=== PATIENT | female | born 1955 | race Caucasian/White ===

== ENCOUNTER → 2016-11-17 | Outpatient (CLI) | payer MEDICARE ==
[2016-11-17 11:28] LABS: Basophils % (A) 1 %; CH 29.7; CHCM 33.5; Eosinophils # (A) 0.1 k/uL (0-0.7); Eosinophils % (A) 3 %; HCT 37.7 % (34.0-46.0); HDW 2.48; HGB 12.5 gm/dL (11.4-16.0); Luc # (Auto) 0.09; Luc % (Auto) 3; Lymphocytes # (A) 1.4 k/uL (1.0-4.8); Lymphocytes % (A) 40 %; MCH 29.5 pg (25.0-35.0); MCHC 33.2 g/dL (31.0-37.0); Mean Platelet Volume 7.2; Monocytes # (A) 0.2 k/uL (0-1.0); Monocytes % (A) 7 %; Neutrophils # (A) 1.6 k/uL (1.3-7.7); Neutrophils % (A) 47 %; RBC 4.24 m/uL (3.80-5.40); RDW 13.4 % (11.5-15.5); WBC 3.4 k/uL (3.8-10.6); WBC (Perox) 3.62
== END | disposition home or self-care (01) ==
LOC: LABPAT 10:51
PROVIDERS: ATTEND Obstetrics & Gynecology
DX: Z01.818 Encounter for other preprocedural examination (principal); R94.31 Abnormal electrocardiogram [ECG] [EKG]
CPT/HCPCS: 36415; 85025; 93005

== ENCOUNTER 2016-11-27 08:19 | Day surgery (SDC) | payer BC, MEDICARE ==
[2016-11-20 10:42] VITALS: BMI 30.9
--- NOTE | 2016-11-27 07:37 | P.HPOB ---
History of Present Illness H&P Date: 11/27/16 Chief Complaint: Thickened endometrium Patient is a 61-year-old female who recently was seen for urinary tract complaints of pelvic pressure with back pain. Ultrasound had been done and revealed a grossly thickened endometrium of approximately 2 cm. She is therefore scheduled for a D&C hysteroscopy. Risks/benefits/alternatives were reviewed with the patient in detail and all questions were answered for her prior to proceeding to the operating room. On physical exam vital signs are stable and afebrile. Heart regular, lungs clear, extremities without pain. Pelvic exam is to be done with her under anesthetic today. Past Medical History Past Medical History: Cancer, Hyperlipidemia, Thyroid Disorder Additional Past Medical History / Comment(s): skin CA History of Any Multi-Drug Resistant Organisms: None Reported Past Surgical History: Orthopedic Surgery Additional Past Surgical History / Comment(s): neck fusion;partial thyroidectomy ; carpel tunnel;R wrist TFS tear; skin Ca removal Past Anesthesia/Blood Transfusion Reactions: No Reported Reaction Past Psychological History: No Psychological Hx Reported Smoking Status: Never smoker Past Alcohol Use History: Occasional Past Drug Use History: None Reported - Past Family History Mother Family Medical History: Cancer Additional Family Medical History / Comment(s): Skin CA Brother(s) Family Medical History: Cancer Additional Family Medical History / Comment(s): Skin CA Medications and Allergies Home Medications Medication Instructions Recorded Confirmed Type ALPRAZolam [Xanax] 0.5 mg PO DAILY PRN 05/21/16 11/20/16 History Cyclobenzaprine [Flexeril] 10 mg PO BID PRN 05/21/16 11/20/16 History Gabapentin [Neurontin] 300 mg PO Q8H 05/21/16 11/20/16 History Levothyroxine Sodium [Synthroid] 150 mcg PO MOTUWETHFRSA 05/21/16 11/20/16 History Pravastatin Sodium [Pravachol] 20 mg PO AC-SUPPER 05/21/16 11/20/16 History Sertraline HCl [Zoloft] 150 mg PO DAILY 05/21/16 11/20/16 History Zolpidem [Ambien] 10 mg PO HS PRN 05/21/16 11/20/16 History traMADol HCL [Ultram] 50 mg PO BID 05/21/16 11/20/16 History Allergies Allergy/AdvReac Type Severity Reaction Status Date / Time hydromorphone [From Dilaudid] AdvReac Nausea & Verified 11/20/16 10:33 Vomiting morphine AdvReac Nausea & Verified 11/20/16 10:33 Vomiting Exam Osteopathic Statement: *. No significant issues noted on an osteopathic structural exam other than those noted in the History and Physical/Consult. - OBG Physical Exam Abdomen: bowel sounds normal, no diffuse tenderness, no bruit present, no guarding noted, no hepatomegaly, no splenomegaly, no mass
[~2016-11-27 08:19] MED LIST: DEXAMETHASONE SOD PHOSPHATE 10 MG/ML 1 ML VIAL IV ONE; LACTATED RINGERS 1,000 ML IV SCH; ONDANSETRON 4 MG/2 ML VIAL IVP ONE; Pre Op ABX Message 1 EACH MISC MISCELLANE ONE
[2016-11-27] MEDS ORDERED: LIDOCAINE 1% 20 ML VIAL (10MG/ML) FOR IV START INTRADERMA ONE (09:03)
[2016-11-27] MEDS ORDERED: KETOROLAC 30 MG/ML 1 ML VIAL ONE (09:49)
[2016-11-27] MEDS ORDERED: MIDAZOLAM 2 MG/2 ML VIAL ONE (09:49)
[2016-11-27] MEDS ORDERED: LIDOCAINE 1% INJ 10MG/ML (20 ML MDV) ONE (09:49)
[2016-11-27] MEDS ORDERED: PROPOFOL 10 MG/ML 20 ML VIAL IV ONE (09:49)
[2016-11-27] MEDS ORDERED: fentaNYL (PF) 50 MCG/ML 2 ML AMP ONE (09:49)
--- NOTE | 2016-11-27 10:18 | P.OP ---
Date of Procedure: 11/27/16 Preoperative Diagnosis: Thickened endometrium Postoperative Diagnosis: Normal appearing uterus Procedure(s) Performed: D&C hysteroscopy Anesthesia: LINDSEY Surgeon: Roddy Rebolledo Estimated Blood Loss (ml): 1 Pathology: other (Uterine curettings) Condition: stable Disposition: same day Operative Findings: Scant tissue normal appearing endometrium suspect an adequate tissue sample due to possibility of sample. No evidence of lesion noted either with hysteroscope or with D&C tissue sampling. Description of Procedure: Patient was taken to the operating suite where a general anesthetic was found to be adequate. She was prepped and draped in the normal sterile fashion and placed in the dorsal lithotomy position. Initially a speculum was inserted into the vagina and the anterior lip of the cervix was identified and grasped with a single-tooth tenaculum. It was then dilated and sounded to 8 cm. Camera was then inserted. Os menopausal appearing uterus was noted is no evidence of hyperplasia. No polyps is seen. Once this was accomplished camera was removed and sharp curettings of the endometrium were obtained small amount of tissue returned suspect benign tissue. We'll have her back in 2 weeks to review pathology. Plan - Discharge Summary New Discharge Prescriptions: Ibuprofen [Motrin] 600 mg PO Q6HR PRN #30 tab PRN Reason: Pain Discharge Medication List ALPRAZolam [Xanax] 0.5 mg PO DAILY PRN 05/21/16 [History] Cyclobenzaprine [Flexeril] 10 mg PO BID PRN 05/21/16 [History] Gabapentin [Neurontin] 300 mg PO Q8H 05/21/16 [History] Levothyroxine Sodium [Synthroid] 150 mcg PO MOTUWETHFRSA 05/21/16 [History] Pravastatin Sodium [Pravachol] 20 mg PO AC-SUPPER 05/21/16 [History] Sertraline HCl [Zoloft] 150 mg PO DAILY 05/21/16 [History] Zolpidem [Ambien] 10 mg PO HS PRN 05/21/16 [History] traMADol HCL [Ultram] 50 mg PO BID 05/21/16 [History] Acetaminophen [Tylenol] 500 mg PO Q4-6H PRN 11/27/16 [History] Atenolol [Tenormin] 25 mg PO DAILY 11/27/16 [History] Ibuprofen [Motrin] 600 mg PO Q6HR PRN #30 tab 11/27/16 [Rx] Follow up Appointment(s)/Referral(s): Roddy Rebolledo DO [Doctor of Osteopathic Medicine] - 2 Weeks Activity/Diet/Wound Care/Special Instructions: No heavy lifting, limit stairs and driving today, pelvic rest. If any high temperatures, heavy bleeding, or severe pain call the office
[2016-11-27 10:30] VITALS: TEMP 97.2
[2016-11-27 10:33] VITALS: RESP 16
[2016-11-27 11:20] VITALS: PULSE 66
[2016-11-27 11:47] VITALS: BP 120/74
== END 2016-11-27 12:24 | disposition home or self-care (01) ==
LOC: OR 08:19
PROVIDERS: ATTEND Obstetrics & Gynecology
DX: R93.8 Abnormal findings on diagnostic imaging of other specified body structures (principal); N85.8 Other specified noninflammatory disorders of uterus; R94.31 Abnormal electrocardiogram [ECG] [EKG]; E78.5 Hyperlipidemia, unspecified; E89.0 Postprocedural hypothyroidism; I10 Essential (primary) hypertension; Z85.828 Personal history of other malignant neoplasm of skin; Z79.899 Other long term (current) drug therapy
CPT/HCPCS: 88305; 58558; J2250; J1100; J2405; J2001; J3010; J1885; J2704

== ENCOUNTER → 2017-02-26 | Outpatient (CLI) | payer MEDICARE ==
--- NOTE | 2017-02-27 08:28 | MM ---
Reason for exam: screening (asymptomatic). Last mammogram was performed 1 year and 6 months ago. History: Patient is postmenopausal and has history of other cancer at age 57. Benign cyst aspiration of the right breast, June 11, 2001. Reduction of the left breast. Reduction of the right breast. Cyst aspiration of the right breast. Physical Findings: A clinical breast exam by your physician is recommended on an annual basis and results should be correlated with mammographic findings. MG 3D Screening Mammo W/Cad Bilateral CC and MLO view(s) were taken. Prior study comparison: August 28, 2015, bilateral MG 3d screening mammo w/cad. May 10, 2014, bilateral MG foundation screening mammo. There are scattered fibroglandular densities. There is chronic nodularity in the right breast. No significant changes when compared with prior studies. ASSESSMENT: Benign, BI-RAD 2 RECOMMENDATION: Routine screening mammogram of both breasts in 1 year.
== END | disposition home or self-care (01) ==
LOC: RADMAMWWP 10:42
PROVIDERS: ATTEND Obstetrics & Gynecology
DX: Z12.31 Encounter for screening mammogram for malignant neoplasm of breast (principal)
CPT/HCPCS: 77063; G0202

== ENCOUNTER → 2018-01-15 | Outpatient (CLI) | payer MEDICARE ==
--- NOTE | 2018-01-15 11:51 | MR ---
EXAMINATION TYPE: MR lumbar spine wo con DATE OF EXAM: 01/15/2018 COMPARISON: Plain film 05/21/2016 HISTORY: Low back pain TECHNIQUE: Multiplanar, multisequence images of the lumbar spine were acquired. L1-L2: Small posterior broad-based disc bulge contacts anterior thecal sac, no significant central st enosis or foraminal encroachment. L2-L3: Broad-based posterior disc bulge contacts the anterior thecal sac. No significant foraminal en croachment or central stenosis. L3-L4: Small central posterior disc protrusion causes anterior mass effect on the thecal sac, no sign ificant central stenosis or foraminal encroachment. L4-L5: Facet arthropathy changes present, hypertrophic change of the ligamentum flavum encroaches on the lateral recesses. Suspect there is possible synovial cyst extending towards the right neural fora men seen on sagittal image 11 which may cause some mass effect on the right L4 nerve root. Posterior broad-based disc bulge contacts anterior thecal sac, there is moderate central canal stenosis. L5-S1: There are facet arthropathy changes. No significant central stenosis or foraminal encroachment . No disc herniation. Lumbar segments are intact. No paraspinal masses are identified. Conus medullaris has a normal appe arance. Alignment is stable. Minimal anterolisthesis grade 1 L4-5, L5-S1. There is multilevel spondyl osis with endplate discogenic marrow signal change, loss of disc height signal is present especially at L4-5, L2-3 compatible disc desiccation and degenerative disc disease. IMPRESSION: Canal stenosis greatest at L4-5, facet arthropathy, correlate for right L4 radiculopathy, foraminal e ncroachment as described. Multilevel degenerative disc disease. Additional findings above.
== END | disposition home or self-care (01) ==
LOC: RADMRIMAIN 08:57
PROVIDERS: ATTEND Physical Medicine & Rehabilitation
DX: M48.061 Spinal stenosis, lumbar region without neurogenic claudication (principal); M46.96 Unspecified inflammatory spondylopathy, lumbar region; M51.36 Other intervertebral disc degeneration, lumbar region; M51.26 Other intervertebral disc displacement, lumbar region; M53.86 Other specified dorsopathies, lumbar region; M50.121 Cervical disc disorder at C4-C5 level with radiculopathy; Z98.1 Arthrodesis status
CPT/HCPCS: 72148

== ENCOUNTER → 2018-04-21 | Outpatient (CLI) | payer MEDICARE ==
--- NOTE | 2018-04-21 10:47 | XR ---
EXAMINATION TYPE: XR chest 2V DATE OF EXAM: 04/21/2018 COMPARISON: NONE HISTORY: Presurgical study. TECHNIQUE: Frontal and lateral views of the chest are obtained. FINDINGS: There is no focal air space opacity, pleural effusion, or pneumothorax seen. The cardiac silhouette size is upper limits of normal. Anterior fusion plate lower cervical spine is partially im aged. IMPRESSION: No acute cardiopulmonary process.
[2018-04-21 11:28] LABS: Basophils % (A) 1 %; Eosinophils # (A) 0.1 k/uL (0-0.7); Eosinophils % (A) 3 %; HCT 37.5 % (34.0-46.0); HGB 12.8 gm/dL (11.4-16.0); Lymphocytes # (A) 1.2 k/uL (1.0-4.8); Lymphocytes % (A) 35 %; MCH 29.4 pg (25.0-35.0); MCHC 34.2 g/dL (31.0-37.0); MCV 86.1 fL (80.0-100.0); Mean Platelet Volume 7.2; Monocytes # (A) 0.3 k/uL (0-1.0); Monocytes % (A) 8 %; Neutrophils # (A) 1.9 k/uL (1.3-7.7); Neutrophils % (A) 52 %; Platelet Count 341 k/uL (150-450); RBC 4.35 m/uL (3.80-5.40); RDW 12.5 % (11.5-15.5); WBC 3.5 k/uL (3.8-10.6)
[2018-04-21 11:39] LABS: Anion Gap 7 mmol/L; Blood Urea Nitrogen 11 mg/dL (7-17); Calcium 9.6 mg/dL (8.4-10.2); Carbon Dioxide 27 mmol/L (22-30); Chloride 104 mmol/L (98-107); Glucose 104 mg/dL (74-99); Potassium 4.9 mmol/L (3.5-5.1); Sodium 138 mmol/L (137-145)
[2018-04-21 11:42] LABS: Appearance,Urine Clear (Clear); Bilirubin,Urine Negative (Negative); Blood,Urine Negative (Negative); Color,Urine Light Yellow; Glucose,Urine (UA) Negative (Negative); Ketones,Urine Negative (Negative); Leukocyte Esterase,Urine Negative (Negative); Nitrite,Urine Negative (Negative); PH, Urine 6.5 (5.0-8.0); Protein,Urine Negative (Negative); Specific Gravity,Urine 1.005 (1.001-1.035); Urobilinogen,Urine <2.0 mg/dL (<2.0)
[2018-04-21 12:05] LABS: Partial Thromboplastin Time 23.7 sec (22.0-30.0); Prothrombin Time 10.1 sec (9.0-12.0)
== END | disposition home or self-care (01) ==
LOC: RADXRMAIN 10:13
PROVIDERS: ATTEND Orthopaedic Surgery Orthopaedic Surgery of the Spine
DX: Z01.812 Encounter for preprocedural laboratory examination (principal); Z01.818 Encounter for other preprocedural examination; M43.10 Spondylolisthesis, site unspecified
CPT/HCPCS: 36415; 71046; 80048; 81003; 85025; 85610; 85730; 87070

== ENCOUNTER → 2018-04-26 | Outpatient (CLI) | payer MEDICARE | END | disposition home or self-care (01) | LOC: LABWHC1 12:00 | PROVIDERS: ATTEND Orthopaedic Surgery Orthopaedic Surgery of the Spine | DX: Z01.812 Encounter for preprocedural laboratory examination (principal); M43.00 Spondylolysis, site unspecified | CPT/HCPCS: 36415; 86850; 86900; 86901 ==

== ENCOUNTER 2018-05-05 10:31 | Inpatient (IN) | payer MEDICARE ==
[2018-04-22 13:48] VITALS: BMI 30.9
[~2018-05-05 10:31] MED LIST changes: +BACITRACIN 50,000 UNIT, POLYMYXIN B 500,000 UNIT in SODIUM CHLORIDE 0.9% IRRIGATIO 1,00... IRRIGATION ONE; -LACTATED RINGERS 1,000 ML IV SCH; -Pre Op ABX Message 1 EACH MISC MISCELLANE ONE; +ceFAZolin IN SWFI 2 GM/20 ML SYRINGE IVP ONE
[2018-05-05] MEDS ORDERED: LIDOCAINE 1% 20 ML VIAL (10MG/ML) FOR IV START INTRADERMA ONE (11:35)
[2018-05-05] MEDS: LACTATED RINGERS 1,000 ML IV SCH ×2 (11:35→19:40)
[2018-05-05] MEDS ORDERED: THROMBIN (BOVINE) 5,000 UNIT VIAL TOPICAL ONE (12:48)
[2018-05-05] MEDS ORDERED: LIDOCAINE 0.5%-EPI 1:200,000 50 ML VIAL SQ ONE (12:48)
[2018-05-05] MEDS ORDERED: GELATIN SPONGE,ABSORB (LARGE) 1 EACH SPONGE TOPICAL ONE (12:48)
[2018-05-05] MEDS ORDERED: MIDAZOLAM 2 MG/2 ML VIAL ONE (12:48)
[2018-05-05] MEDS ORDERED: NEOSTIGMINE 1 MG/ML 10 ML VIAL ONE (12:48)
[2018-05-05] MEDS ORDERED: ROCURONIUM BROMIDE 10 MG/ML 10 ML VIAL IV ONE (12:48)
[2018-05-05] MEDS ORDERED: PROPOFOL 10 MG/ML 20 ML VIAL IV ONE (12:48)
[2018-05-05] MEDS ORDERED: PHENYLEPHRINE-0.9% NACL SYG 1 MG/10 ML SYRINGE ONE (12:48)
[2018-05-05] MEDS ORDERED: METOCLOPRAMIDE 5 MG/ML 2 ML VIAL ONE (12:48)
[2018-05-05] MEDS ORDERED: ePHEDrine SULFATE/0.9% NACL/PF 50 MG/5 ML SYRINGE IV ONE (12:48)
[2018-05-05] MEDS ORDERED: ACETAMINOPHEN IV (For NPO) 1,000 MG/100 ML VIAL ONE (12:48)
[2018-05-05] MEDS ORDERED: fentaNYL (PF) 50 MCG/ML 2 ML AMP ONE (12:48)
[2018-05-05] MEDS ORDERED: GLYCOPYRROLATE 0.2 MG/ML 2 ML VIAL ONE (12:48)
[2018-05-05] MEDS ORDERED: diphenhydrAMINE 50 MG/ML 1 ML VIAL ONE (12:48)
[2018-05-05] MEDS ORDERED: LACTATED RINGERS 1,000 ML IV ONE (15:00)
[2018-05-05] MEDS ORDERED: HYDROmorphone 1 MG/ML 1 ML SYRINGE IVP PRN (15:43)
[2018-05-05] MEDS ORDERED: BENZOCAINE/MENTHOL LOZENG 1 EACH LOZENGE MUCOUS MEM PRN (15:43)
[2018-05-05] MEDS ORDERED: HYDROcodone/APAP 5-325MG 1 EACH TAB PO PRN (15:43)
[2018-05-05] MEDS ORDERED: MAGNESIUM HYDROXIDE 2,400 MG/10 ML CUP PO PRN (15:43)
[2018-05-05] MEDS ORDERED: SUMAtriptan SUCCINATE 50 MG TAB PO PRN (15:46)
[2018-05-05] MEDS ORDERED: ALPRAZolam 0.5 MG TAB PO PRN (15:46)
[2018-05-05] MEDS ORDERED: traMADol 50 MG TAB PO PRN (15:46)
--- NOTE | 2018-05-05 15:54 | P.OP ---
Date of Procedure: 05/05/18 Preoperative Diagnosis: Spondylolisthesis L4 5 Spinal stenosis L4 5 Low back pain Lower extremity radiculopathy Postoperative Diagnosis: Same Anesthesia: GETA Pathology: none sent Condition: stable Disposition: PACU Description of Procedure: DESCRIPTION OF PROCEDURE(S): BRIEF OPERATIVE NOTE Preoperative Diagnosis: Spondylolisthesis L4 5 Spinal stenosis L4 5 Low back pain Lower extremity radiculopathy Postoperative Diagnosis: Same Procedure: Laminectomy and decompression with wide foraminotomy L4 5 Minimally invasive Posterior lateral decompression and facet fusion L4 5 Minimally invasive Transforaminal lumbar interbody fusion for a 360 fusion L4 5 Discectomy for decompression L4 5 Placement of interbody graft L4 5 Local autogenous bone grafting Harvesting of bone marrow aspirate via the pedicle of L4 and vertebral body of L4 Use of Cell Saver Use of bone graft extenders Surgeon: Dr. Olivares Top Loader: Vito Sumner is present throughout the entire the case persistence during positioning, dissection, exposure, visualization, and all crucial elements of the case as well as closure. Anesthesia: General anesthesia Estimated blood loss: Approximately 200 mL Complications: None apparent Components implanted: K2M minimally invasive [place] pedicle screw system with 4 screws measuring 6.5 x 50 mm 2 rods and 1 [place] expansile interbody cage with 1 osteo amp sponge and 15 mL DBX bone fibers Disposition: To recovery room in good stable condition. OPERATIVE INDICATIONS The patient has had long-standing issues in their lower back and lower extremities. She is found have spondylolisthesis which was dynamic at L4 5 which correlated with her low back pain. She also had significant stenosis particular foraminal stenosis and radiculopathy worse on the right than the left which quite well with her low back lower extremity imaging. The patient has been through conservative treatment. She is not having any lasting benefit despite aggressive conservative treatment. We discussed various treatment options including surgery, and the patient wishes to proceed with surgery We discussed the risk, patient's alternatives and benefits of surgery including but not limited to, risk of bleeding risk of infection, risk of need for further surgery, risk of decreased, loss of motion, muscle function, malunion nonunion, hardware failure, nerve damage, paralysis, heart attack, blindness and . OPERATIVE SUMMARY After discussing all the risks, patient alternatives and benefits at length, the patient elected to proceed with surgical intervention, signed informed consent, and presented for their procedure. The patient was seen and examined in the preoperative holding area and the surgical site was marked. The patient was given antibiotics and brought to the operating room. The patient was sedated and intubated by anesthesia in standard fashion. The patient was positioned on to the operating room table in a prone position on the appropriate frame which was well-padded and well molded. We were careful to pad any bony prominences and pressure points. We were careful to maintain the patient's cervical spine and good neutral alignment and position throughout. The patient was prepped and draped in a normal standard fashion. An appropriate timeout and keystone protocol performed. We were able to proceed with the surgery. The local wound area was infiltrated with local anesthetic. I was able utilize C-arm guidance to establish appropriate position over the pedicles bilaterally at the appropriate levels at L4 5. With the appropriate levels confirmed was able to make small stab incisions over the appropriate pedicle sites bilaterally. Utilizing C-arm in his house able to establish a Jamshidi needle over the lateral aspect of the pedicle and advanced the trocar into the pedicle being careful not to breech superiorly inferiorly medially or laterally. Position was confirmed regularly with AP and lateral images on C- arm. I was able to establish the trocar into the pedicle appropriately into the posterior aspect of the vertebral body bilaterally at the appropriate levels. This was done at each of the pedicle positions and each of the vertebrae. I was able place the guidewire into the trocar and into the vertebral body appropriately under C-arm guidance. Dissection was taken down over the wire to the appropriate starting position for the screw placed. The appropriate length screw was chosen, threaded over the guidewire and screwed appropriately into the pedicle and vertebral body under C-arm guidance in excellent alignment and position with good bony purchase. This is done at each of the screw sites at the appropriate levels at L4 5 bilaterally. With the screws intact I extended the incision to connect the screw hole sites on the most symptomatic side. I dissected down to establish access over the pars and lamina to the base of the spinous process. I was able to expose the facet joint. The capsule the facet was taken down and showed some facet arthrosis at the joint. I was able to use a combination of curettes and [place] rongeurs and a high-speed drill to take down the facet joint and do a facetectomy. Partial laminectomy was also performed. I was able get excellent foraminal decompression and central decompression with undermining across midline to perform a laminectomy centrally and contralaterally. As able get good central decompression. The ligamentum flavum was taken down to further decompress centrally and at bilateral neural foramen. I was able to expose the disc space and visualize the traversing nerve root. Note was made of some disc protrusion at the level causing further compression of the nerve root. I was able to establish a annulotomy at the appropriate level protecting soft tissue and neural structures. Note was made of some disc desiccation at the disc. I performed a complete discectomy with accommodation of curettes and rasps and scrapers. I was able get good endplate preparation at the disc space. I sized for the appropriate size interbody spacer protecting the soft tissue and neural structures. The wound was copiously irrigated and suctioned dry. There is no evidence of any dural tear or leak. I was able to pack the disc space with local autogenous bone graft as well as a small amount of bone graft which was also placed into the interbody cage itself. Protecting the soft tissue structures and neural structures I was able place the interbody cage in good alignment and good position with good fit and fill at the interbody space. The cage was able to be expanded appropriately which was visualized on C-arm. His issues was confirmed with C-arm guidance. Good hemostasis maintained. There is no evidence of any dural tear or leak. The wound was irrigated and suctioned dry. With the hardware intact, intraoperative C-arm imaging was again taken which showed good alignment and position of the hardware at the appropriate levels of L4 5. We were then able to measure, contour and place the rods and appropriate hardware bilaterally. I was able to place capcrews, tighten them down, and torque them with the torque screwdriver appropriately. With this intact I was able to place the local autogenous bone graft with additional bone graft enhancer as necessary into the posterior lateral gutters over the decorticated transverse processes and facet joints at L4 5. The remainder of the bone graft was placed over the facet joint on the contralateral side after taking down the facet joint capsule. With the bone graft intact, a stable construct, and good decompression at the appropriate levels, we were able to proceed with closure. Good hemostasis was maintained. There is no evidence of dural tear or leak. The fascia was closed for a watertight closure. he subcuticular tissue was closed with absorbable suture. The wound was cleaned and dried and dressed with the appropriate dressing. The drapes were broken down. The patient was gently rolled back onto their hospital bed being careful to maintain their cervical spine and good neutral alignment and position. They were woken up by anesthesia, extubated, and brought to the recovery room in good stable condition. The patient will be admitted to the hospital for appropriate postoperative care , medical management and monitoring. We will continue to follow them closely about the postoperative course.
[2018-05-05] MEDS ORDERED: ONDANSETRON 4 MG/2 ML VIAL IVP ONE (16:07)
[2018-05-05] MEDS: fentaNYL (PF) 50 MCG/ML 2 ML AMP IV PRN ×4 (16:07→17:15)
--- NOTE | 2018-05-05 16:12 | XR ---
Fluoroscopy INDICATION: Pain FINDINGS: Fluoroscopy time: 1 minute 17 seconds. Images obtained: 2. IMPRESSIONS: 1. Documentation of fluoroscopy.
[2018-05-05] MEDS: HYDROmorphone 1 MG/ML 1 ML SYRINGE IVP PRN ×2 (18:02→22:16)
[2018-05-05] MEDS: SODIUM CHLORIDE 0.9% 1,000 ML IV SCH (19:39)
[2018-05-05] MEDS: HYDROcodone/APAP 5-325MG 1 EACH TAB PO PRN (20:41)
[2018-05-05] MEDS: ATORVASTATIN 10 MG TAB PO SCH (20:46)
[2018-05-05] MEDS: ceFAZolin IN SWFI 2 GM/20 ML SYRINGE IVP SCH (20:46)
[2018-05-05] MEDS: ZOLPIDEM 5 MG TAB PO SCH (20:46)
--- NOTE | 2018-05-05 22:03 | CONS ---
CONSULTATION DATE OF CONSULTATION: 05/05/2018 REASON FOR CONSULTATION: Medical management, requested by Dr. Olivares. CONSULTATION: This is a very pleasant 63-year-old patient of Dr. Marina who has significant arthritis and lumbar problems with pain radiating down the right leg. Patient did undergo laminectomy and decompression of the lumbar area. Post procedure she is lying in bed. Some pain is present. No nausea or vomiting. Chronic stable medical conditions include GERD, hyperlipidemia, arthritis, hypothyroid, anxiety, insomnia. Denies any cardiac history. Did tolerate some liquids in the evening. REVIEW OF SYSTEM: CONSTITUTIONAL: None. HEENT: None. RESPIRATORY: None. CARDIOVASCULAR: None. GASTROINTESTINAL: Heartburn. GENITOURINARY: Has a Alejandra catheter. DERMATOLOGICAL: None. HEMATOLOGICAL: None. LYMPHATICS: None. PSYCHIATRY: Anxiety. NEUROLOGICAL: Radicular pain prior to surgery. PAST MEDICAL HISTORY: 1. GERD. 2. Hyperlipidemia. 3. Osteoarthritis. 4. Hypothyroid. 5. Anxiety. 6. Insomnia. 7. Skin cancer. PAST SURGICAL HISTORY: 1. Back surgery. 2. Breast surgery. 3. . 4. Partial thyroidectomy. 5. Cervical fusion. 6. Bunionectomy, right foot. 7. Bilateral breast reduction. 8. Bilateral wrist carpal tunnel. 9. Right wrist surgery for torn cartilage. 10.Left tendon arthroplasty. PSYCH HISTORY: Anxiety. SOCIAL HISTORY: Does not smoke. Alcohol occasionally. . FAMILY HISTORY: Reviewed; noncontributory to presentation. HOME MEDICATIONS: 1. Ultram 50 mg b.i.d. 2. Ambien 5 to 10 mg at bedtime. 3. Imitrex 50 mg as directed. 4. Synthroid 150 mcg p.o. daily. 5. Advil 400 mg p.o. b.i.d. 6. Neurontin 300 mg p.o. daily. 7. Flexeril 20 mg p.o. b.i.d. p.r.n. 8. Lipitor 10 mg before supper. 9. Tenormin 50 mg p.o. daily. 10.Xanax 0.5 mg p.o. daily p.r.n. ALLERGIES: DILAUDID and MORPHINE, both causing nausea and vomiting. PHYSICAL EXAMINATION: Afebrile. Pulse 80, blood pressure 115/54, pulse ox 100%. GENERAL APPEARANCE: Well built; BMI 31. Lying in bed, somewhat uncomfortable. EYES: Pupils equal. Conjunctivae normal. HEENT: External appearance of nose and ears normal. Oral cavity normal. NECK: JVD not raised. Mass not palpable. RESPIRATORY: Effort normal. LUNGS: Fair air entry. CARDIOVASCULAR: First and second sounds normal. No edema. ABDOMEN: Soft, non-tender. Liver and spleen not palpable. LYMPHATIC: No lymph node palpable in neck or axillae. PSYCHIATRY: Alert and oriented x3. Mood and affect normal. NEUROLOGICAL: Pupils equal. Cranial nerves grossly intact. EXTREMITIES: Venodyne boots in place. Patient has a dressing over the surgical site. INVESTIGATIONS: Blood work from 04/21/2018 shows a white count of 3.5, hemoglobin 12.8, potassium 4.9. BUN and creatinine are normal. Hemoglobin 12.8. ASSESSMENT: 1. Lower lumbar surgery for laminectomy and decompression, more details in Dr. Olivares's note, which prior to surgery was causing radiation down the right leg. 2. Gastroesophageal reflux disease. 3. Hyperlipidemia. 4. Primary osteoarthritis. 5. Hypothyroid. 6. Chronic anxiety disorder not otherwise specified. 7. Chronic insomnia, probably from medical reasons. 8. Obesity; body mass index 30.9. PLAN: Patient's home medications will be resumed. For pain medications, patient has Dilaudid and [place]. She also has Venodyne boots for DVT prophylaxis. She is also getting IV fluids. Care was discussed the patient. Questions were answered. Thank you, Dr. Olivares. MMODL / IJN: [id number] /
[2018-05-05] MEDS: ONDANSETRON 4 MG/2 ML VIAL IVP PRN (22:29)
[2018-05-05] MEDS: CYCLOBENZAPRINE 10 MG TAB PO PRN (23:03)
[2018-05-06] MEDS: HYDROmorphone 1 MG/ML 1 ML SYRINGE IVP PRN ×5 (02:06→22:33)
[2018-05-06] MEDS: HYDROcodone/APAP 5-325MG 1 EACH TAB PO PRN ×2 (02:33→05:58)
[2018-05-06] MEDS: ceFAZolin IN SWFI 2 GM/20 ML SYRINGE IVP SCH (04:29)
[2018-05-06] MEDS: SODIUM CHLORIDE 0.9% 1,000 ML IV SCH ×2 (04:30→20:09)
[2018-05-06] MEDS: LEVOTHYROXINE 75 MCG TAB PO SCH (05:58)
[2018-05-06] MEDS: ONDANSETRON 4 MG/2 ML VIAL IVP PRN (05:58)
[2018-05-06 07:32] LABS: Basophils % (A) 0 %; Eosinophils # (A) 0.1 k/uL (0-0.7); Eosinophils % (A) 0 %; HCT 38.8 % (34.0-46.0); HGB 12.5 gm/dL (11.4-16.0); Lymphocytes # (A) 0.4 k/uL (1.0-4.8); Lymphocytes % (A) 4 %; MCH 28.9 pg (25.0-35.0); MCHC 32.1 g/dL (31.0-37.0); MCV 90.2 fL (80.0-100.0); Monocytes # (A) 0.6 k/uL (0-1.0); Monocytes % (A) 5 %; Neutrophils # (A) 11.1 k/uL (1.3-7.7); Neutrophils % (A) 91 %; Platelet Count 251 k/uL (150-450); RBC 4.31 m/uL (3.80-5.40); RDW 12.5 % (11.5-15.5); WBC 12.3 k/uL (3.8-10.6)
[2018-05-06] MEDS: CYCLOBENZAPRINE 10 MG TAB PO PRN (08:40)
[2018-05-06] MEDS: GABAPENTIN 300 MG CAP PO SCH ×2 (08:40→08:45)
[2018-05-06] MEDS: SENNOSIDES-DOCUSATE SODIUM 1 EACH TAB PO SCH (08:41)
[2018-05-06] MEDS: ATENOLOL 50 MG TAB PO SCH (08:41)
[2018-05-06] MEDS ORDERED: HYDROcodone/APAP 7.5-325MG 1 EACH TAB PO PRN (08:53)
--- NOTE | 2018-05-06 08:57 | P.PN ---
Progress Note - Text Progress Note Date: 05/06/18 Postoperative day #1 Patient is seen and examined today at bedside. The patient has some pain around the surgical site as expected. Pain is being controlled with medication. She is having some trouble with her pain control. She has not yet been out of bed. She denies any nausea or vomiting. She's her legs are doing well. Physical Exam Afebrile with stable vital signs Abdomen is soft nontender. Chest has good excursion deep and space expiration The incision site is clean dry and intact. No erythema there is no purulence. There is no active drainage at her back Extremities have not had neurologic change from prior to surgery. She has sustained dorsiflexion plantar flexion and EHL intact Calves and thighs were soft nontender without evidence of DVT. Assessment/Plan Postoperative day #1 status post minimally invasive decompression and fusion at L45 for her spondylolisthesis with spinal stenosis and lower extremity radiculopathy Patient is progressing as expected from the surgery. We will increase her mobilization today. She is having some trouble with her pain control and we will up her [place] to 7.5 from the 5 mg. She has some difficulty with pain medications and we'll see how she tolerates this We will continue to increase the patient's mobilization with therapy. We will continue pain control with oral or IV medications. We'll continue to follow patient closely. Hopefully she will improve her mobilization and be able to be discharged home tomorrow or Thursday.
[2018-05-06] MEDS: HYDROcodone/APAP 7.5-325MG 1 EACH TAB PO PRN ×2 (15:44→20:07)
[2018-05-06] MEDS: ZOLPIDEM 5 MG TAB PO SCH (20:07)
[2018-05-06] MEDS: LACTATED RINGERS 1,000 ML IV SCH (20:08)
[2018-05-06] MEDS: ATORVASTATIN 10 MG TAB PO SCH (20:09)
[2018-05-07] MEDS: HYDROcodone/APAP 7.5-325MG 1 EACH TAB PO PRN ×3 (00:27→10:24)
--- NOTE | 2018-05-07 01:01 | PN ---
PROGRESS NOTE DATE OF SERVICE: 05/06/2018. PRESENTING COMPLAINT: Back surgery. INTERVAL HISTORY: Patient is status post lumbar surgery. Pain is better today. Muscle spasm is a bit better. Patient actually used a walker to get to the bathroom. Did eat a bit better. Running a bit tired. REVIEW OF SYSTEMS: Done for constitutional, cardiovascular, GI, pulmonary; relevant findings as above. CURRENT MEDICATIONS: Reviewed, that include IV fluids. PHYSICAL EXAMINATION: Temperature 96, pulse 101, respirations 17, blood pressure 106/73, pulse ox 94% on room air. GENERAL APPEARANCE: Lying in bed, tired appearing. EYES: Pupils equal. Conjunctivae normal. HEENT: External appearance of nose and ears normal. Oral cavity normal. NECK: JVD not raised. Mass not palpable. Respiratory effort normal. LUNGS: Clear. CARDIOVASCULAR: 1st and 2nd sounds normal. No edema. ABDOMEN: Soft, nontender. Liver and spleen not palpable. PSYCHIATRY: Alert and oriented x3. Mood and affect normal. INVESTIGATIONS: White count 12.3, hemoglobin 12.5. ASSESSMENT: 1. Status post lumbar surgery with laminectomy and decompression. 2. Gastroesophageal reflux disease. 3. Hyperlipidemia. 4. Primary osteoarthritis arthritis. 5. Hypothyroidism. 6. Chronic anxiety disorder, not otherwise specified. 7. Chronic insomnia, probably from medical reasons. 8. Obesity; BMI 30.9. PLAN: Continue medication and treatment plan. The patient is clinically doing better. Care discussed with the patient. Thank you, Dr. Olivares. MMODL / IJN: [id number] /
[2018-05-07] MEDS: HYDROmorphone 1 MG/ML 1 ML SYRINGE IVP PRN (02:46)
[2018-05-07] MEDS: SODIUM CHLORIDE 0.9% 1,000 ML IV SCH (07:06)
[2018-05-07 07:41] VITALS: BP 120/70; PULSE 86; RESP 18; TEMP 98
[2018-05-07] MEDS: LEVOTHYROXINE 75 MCG TAB PO SCH (07:45)
[2018-05-07] MEDS: GABAPENTIN 300 MG CAP PO SCH (07:46)
[2018-05-07] MEDS: ATENOLOL 50 MG TAB PO SCH (07:46)
[2018-05-07] MEDS: SENNOSIDES-DOCUSATE SODIUM 1 EACH TAB PO SCH (07:46)
--- NOTE | 2018-05-07 09:04 | P.DS ---
Providers Date of admission: 05/05/18 10:31 Expected date of discharge: 05/07/18 Attending physician: Sherman Olivares Consults: 05/05/18 15:43 Consult Physician Routine Consulting Provider: Maximino Lane Consult Reason/Comments: Medical management Do you want consulting provider notified?: Yes Primary care physician: Macho Marina - Discharge Diagnosis(es) (1) Lumbar spinal stenosis Current Visit: Yes Status: Acute (2) Low back pain Current Visit: Yes Status: Acute (3) Lumbar back pain with radiculopathy affecting right lower extremity Current Visit: Yes Status: Acute (4) Status post lumbar spinal fusion Current Visit: Yes Status: Acute (5) Spondylolisthesis at L4-L5 level Current Visit: No Status: Acute (6) Hypothyroidism Current Visit: Yes Status: Acute (7) Hyperlipidemia Current Visit: Yes Status: Acute Hospital Course: This is a pleasant 63-year-old female who presented with L4-5 spondylolisthesis and spinal canal stenosis with low back pain and right lower extremity radiculopathy who failed outpatient conservative therapy. She was admitted for an L4-5 minimally invasive posterior lateral decompression and fusion with transforaminal lumbar interbody fusion. The patient tolerated the procedure well and did well postoperatively. Her pain has continued to improve postoperatively. She is no longer requiring IV pain medication. She states her right lower extremity radiculopathy continues to be present but has been improving postoperatively. She's been eating and voiding without difficulty. She has been able to ambulate. At this time, she feels she is ready for discharge home. Condition on day of discharge stable. Patient will be discharged home. Patient was cleared preoperatively for surgery by Dr. Marina. Patient currently denies any nausea, vomiting, fever, or chills. Dressing has been removed at the bedside and nonstick Telfa and Tegaderm will be reapplied. Patient may shower Tegaderm dressing intact. Patient may remove Tegaderm dressing in 2 days and shower without a dressing at that time. Patient should refrain from driving until at least after their first follow-up appointment in the office. Patient should avoid excessive bending, lifting, and twisting; no lifting greater than 10 pounds. Patient is given a prescription for Widen 7.5 mg/325 mg 1-2 tabs every 6 hours as needed for pain, dispensed #56 at discharge. Prescription is signed and placed in the patient's chart. An "opioid start talking" form has been signed by the patient and myself. MAPS has been reviewed today, 05/07/2018, and overall overdosed risk score of 130. Patient takes Flexeril in the outpatient setting. We discussed she may resume this medication as prescribed as needed for relief of her symptoms. She also takes Ultram in the outpatient setting. We discussed she should discontinue this medication while taking Widen 7.5 mg/325 mg. She should also discontinue Advil and avoiding anti-inflammatories next 6 weeks postoperatively. She may resume other prescribed home medications may take these medications as prescribed as needed for her other medical diagnoses. Physical Exam on day of discharge: Patient is awake, alert, and oriented 3 Vital signs stable Good chest excursion with deep inspiration and expiration Abdomen soft nontender No signs or symptoms of DVT; no calf pain Extensor hallucis longus, plantarflexion, and dorsiflexion positive sustained bilateral lower extremities Patient is able to perform bilateral hip flexion and knee extension without difficulty Significant pain to palpation over the surgical sites Nonstick Telfa and Tegaderm is removed during physical examination No active drainage from the incision sites Sick Telfa and Tegaderm Incisions are clean and dry no erythema, purulence, or signs of infection Procedures: L4-5 minimally invasive posterior lateral decompression and fusion with transforaminal lumbar interbody fusion Patient Condition at Discharge: Stable Plan - Discharge Summary Discharge Rx Participant: No New Discharge Prescriptions: New HYDROcodone/APAP 7.5-325MG [Widen 7.5-325] 1 - 2 each PO Q6HR PRN #56 tab PRN Reason: Pain No Action traMADol HCL [Ultram] 50 mg PO BID Cyclobenzaprine [Flexeril] 20 mg PO BID PRN PRN Reason: Pain ALPRAZolam [Xanax] 0.5 mg PO DAILY PRN PRN Reason: Anxiety Zolpidem [Ambien] 5 - 10 mg PO HS Levothyroxine Sodium [Synthroid] 150 mcg PO QAM Ibuprofen [Advil] 400 mg PO BID Gabapentin 300 mg PO DAILY SUMAtriptan SUCCINATE [Imitrex] 50 mg PO DIRECTED PRN PRN Reason: migraines Atorvastatin [Lipitor] 10 mg PO PC-SUPPER Atenolol [Tenormin] 50 mg PO DAILY Discharge Medication List ALPRAZolam [Xanax] 0.5 mg PO DAILY PRN 05/21/16 [History] Cyclobenzaprine [Flexeril] 20 mg PO BID PRN 05/21/16 [History] Levothyroxine Sodium [Synthroid] 150 mcg PO QAM 05/21/16 [History] Zolpidem [Ambien] 5 - 10 mg PO HS 05/21/16 [History] traMADol HCL [Ultram] 50 mg PO BID 05/21/16 [History] Atenolol [Tenormin] 50 mg PO DAILY 04/22/18 [History] Atorvastatin [Lipitor] 10 mg PO PC-SUPPER 04/22/18 [History] Gabapentin 300 mg PO DAILY 04/22/18 [History] Ibuprofen [Advil] 400 mg PO BID 04/22/18 [History] SUMAtriptan SUCCINATE [Imitrex] 50 mg PO DIRECTED PRN 04/22/18 [History] HYDROcodone/APAP 7.5-325MG [Widen 7.5-325] 1 - 2 each PO Q6HR PRN #56 tab [Rx] Follow up Appointment(s)/Referral(s): Vito Amaya, GARRETT [[facility]] - 2 Weeks (Patient may follow-up with Vito Amaya PA-C or Dr. Brooks Olivares at [facility] in 2-3 weeks following discharge. ) Activity/Diet/Wound Care/Special Instructions: 1. Patient may shower with Tegaderm dressing intact. 2. Patient may remove Tegaderm dressing in 3 days and shower without a dressing at that time. 3. Patient should keep Steri-Strips intact and allow them to fall off naturally. 4. Patient should refrain from driving until at least after their first follow- up appointment in the office. 5. Patient should avoid excessive bending, twisting, and lifting; no lifting greater than 10 pounds 6. Take medications as prescribed 7. Do not soak in tub Discharge Disposition: HOME SELF-CARE
--- NOTE | 2018-05-08 00:14 | PN ---
PROGRESS NOTE DATE OF SERVICE: 05/07/2018. PRESENTING COMPLAINT: Back surgery. INTERVAL HISTORY: This patient is seen by this morning. Pain is much better controlled. Up to the bathroom. Tolerating a diet. Overall feels much better. Did pass flatus. Keen to go home. Pain is better controlled. No chest pain or short of breath. REVIEW OF SYSTEMS: Done for constitutional, cardiovascular, GI, pulmonary, musculoskeletal; relevant findings as above. CURRENT MEDICATIONS: Reviewed. PHYSICAL EXAMINATION: VITAL SIGNS: Temperature 98, pulse 86, respiratory 18, blood pressure 120/70, pulse ox 91 percent on room air. GENERAL APPEARANCE: Lying in bed, more comfortable. EYES: Pupils equal. Conjunctivae normal. HEENT external appearance of nose and ears normal. Oral cavity normal. NECK: JVD not raised. Mass not palpable. RESPIRATORY effort normal. LUNGS are clear. CARDIOVASCULAR: 1st and 2nd sounds normal. No edema. ABDOMEN: Soft, nontender. Liver and spleen is not palpable. PSYCHIATRY: Alert and oriented x3. Mood and affect normal. INVESTIGATIONS: No blood work from today. ASSESSMENT: 1. Status post lumbar surgery with laminectomy and decompression. 2. Gastroesophageal reflux disease. 3. Hyperlipidemia. 4. Primary osteoarthritis. 5. Hypothyroidism. 6. Chronic anxiety disorder, not otherwise specified. 7. Chronic insomnia from medical reasons. 8. Obesity; BMI 39. PLAN: Clinically patient doing much better. Orthopedics plan to discharge the patient. Care was discussed with the patient and at the bedside. Thank you, Dr. Olivares. MMESVIN / THALIAN: [id number] /
== END 2018-05-07 12:48 | disposition home or self-care (01) | DRG 455 ==
LOC: 2ORMAIN 10:31 → 3SUR 15:44
PROVIDERS: ADMIT Orthopaedic Surgery Orthopaedic Surgery of the Spine; ATTEND Orthopaedic Surgery Orthopaedic Surgery of the Spine
PROC: 0SG0071 Fusion of Lumbar Vertebral Joint with Autologous Tissue Substitute, Posterior Approach, Posterior Column, Open Approach (ICD-10-PCS; principal; 2018-05-05 12:35)
PROC: 0QB03ZZ Excision of Lumbar Vertebra, Percutaneous Approach (ICD-10-PCS; principal; 2018-05-05 12:35)
PROC: 0ST20ZZ Resection of Lumbar Vertebral Disc, Open Approach (ICD-10-PCS; principal; 2018-05-05 12:35)
PROC: 30233H0 Transfusion of Autologous Whole Blood into Peripheral Vein, Percutaneous Approach (ICD-10-PCS; principal; 2018-05-05 12:35)
PROC: 0SG00AJ Fusion of Lumbar Vertebral Joint with Interbody Fusion Device, Posterior Approach, Anterior Column, Open Approach (ICD-10-PCS; principal; 2018-05-05 12:35)
DX: M48.062 Spinal stenosis, lumbar region with neurogenic claudication (principal); M43.16 Spondylolisthesis, lumbar region; M54.16 Radiculopathy, lumbar region; E66.9 Obesity, unspecified; E78.5 Hyperlipidemia, unspecified; F41.9 Anxiety disorder, unspecified; F51.04 Psychophysiologic insomnia; K21.9 Gastro-esophageal reflux disease without esophagitis; M19.91 Primary osteoarthritis, unspecified site; Z68.39 Body mass index [BMI] 39.0-39.9, adult; Z79.899 Other long term (current) drug therapy; Z85.828 Personal history of other malignant neoplasm of skin; Z79.890 Hormone replacement therapy; Z88.5 Allergy status to narcotic agent; Z98.1 Arthrodesis status; E89.0 Postprocedural hypothyroidism; Z87.891 Personal history of nicotine dependence
CPT/HCPCS: 36415; 72100; 85025; 86850; 86900; 86901

== ENCOUNTER → 2019-04-11 | Outpatient (CLI) | payer MEDICARE ==
--- NOTE | 2019-04-12 08:27 | MM ---
Reason for exam: screening (asymptomatic). Last mammogram was performed 2 years and 1 month ago. History: Patient is postmenopausal and has history of other cancer at age 57. Benign cyst aspiration of the right breast, June 11, 2001. Reduction of the left breast. Reduction of the right breast. Cyst aspiration of the right breast. Physical Findings: A clinical breast exam by your physician is recommended on an annual basis and results should be correlated with mammographic findings. MG 3D Screening Mammo W/Cad Bilateral CC and MLO view(s) were taken. Prior study comparison: February 26, 2017, bilateral MG 3d screening mammo w/cad. August 28, 2015, bilateral MG 3d screening mammo w/cad. The breast tissue is heterogeneously dense. This may lower the sensitivity of mammography. There are benign appearing round linear calcifications bilaterally. There is no discrete abnormality. ASSESSMENT: Benign, BI-RAD 2 RECOMMENDATION: Routine screening mammogram of both breasts in 1 year.
== END | disposition home or self-care (01) ==
LOC: RADMAMWWP 10:28
PROVIDERS: ATTEND Family Medicine
DX: Z12.31 Encounter for screening mammogram for malignant neoplasm of breast (principal)
CPT/HCPCS: 77063; 77067

== ENCOUNTER 2019-06-02 06:04 | Day surgery (SDC) | payer MEDICARE ==
[2019-05-31 14:07] VITALS: BMI 30.9
[~2019-06-02 06:04] MED LIST changes: -BACITRACIN 50,000 UNIT, POLYMYXIN B 500,000 UNIT in SODIUM CHLORIDE 0.9% IRRIGATIO 1,00... IRRIGATION ONE; -ceFAZolin IN SWFI 2 GM/20 ML SYRINGE IVP ONE
[2019-06-02] MEDS ORDERED: LIDOCAINE 1% 20 ML VIAL (10MG/ML) FOR IV START INTRADERMA ONE (06:58)
[2019-06-02] MEDS: LACTATED RINGERS 1,000 ML IV SCH ×2 (06:59→08:05)
[2019-06-02] MEDS ORDERED: PROPOFOL 10 MG/ML 20 ML VIAL IV ONE (08:01)
[2019-06-02] MEDS ORDERED: ePHEDrine SULFATE/0.9% NACL/PF 50 MG/5 ML SYRINGE IV ONE (08:01)
[2019-06-02] MEDS ORDERED: MIDAZOLAM 2 MG/2 ML VIAL ONE (08:01)
[2019-06-02] MEDS ORDERED: SUCCINYLCHOLINE CHLORIDE 100 MG/5 ML SYR IV ONE (08:01)
[2019-06-02] MEDS ORDERED: GLYCOPYRROLATE 0.2 MG/ML 2 ML VIAL ONE (08:01)
[2019-06-02] MEDS ORDERED: KETAMINE 10 MG/ML 20 ML VIAL ONE (08:01)
[2019-06-02] MEDS ORDERED: diphenhydrAMINE 50 MG/ML 1 ML VIAL ONE (08:01)
[2019-06-02] MEDS ORDERED: LIDOCAINE 1% INJ 10MG/ML (20 ML MDV) ONE (08:01)
[2019-06-02] MEDS ORDERED: BUPIVACAINE (PF) 0.5% 30 ML VIAL SQ ONE (08:55)
[2019-06-02] MEDS ORDERED: LIDOCAINE 2% INJ 20 MG/ML SQ ONE (08:55)
--- NOTE | 2019-06-02 09:23 | FL ---
Fluoroscopy History: HARDWARE REMOVAL 3 seconds of fluoroscopic time and 1 film/s are submitted for HARDWARE REMOVAL.
[2019-06-02] MEDS: MEPERIDINE 50 MG/ML SYRINGE IVP ONE ×4 (09:28→09:57)
--- NOTE | 2019-06-02 09:32 | P.OP ---
Date of Procedure: 06/02/19 Preoperative Diagnosis: 1. Nonunion left first MTP joint arthrodesis 2. Sympathetic hardware, left first MTP joint Postoperative Diagnosis: Same Procedure(s) Performed: 1. Implant arthroplasty left first MTP joint 2. Hardware removal deep, left foot Anesthesia: LINDSEY Surgeon: Cayetano Choudhury Oil Furnace Installer #1: Isrrael Naqvi Estimated Blood Loss (ml): 1 IV fluids (ml): 800 Pathology: none sent Condition: stable Disposition: PACU Indications for Procedure: The patient is a very pleasant previously healthy 64-year-old female who is well-known to my practice. She previously underwent an attempt at first MTP fusion. Following surgery she had delayed wound healing which eventually resolved with local wound care and oral antibiotics. She initially did well but then developed pain over the hardware which became prominent over the proximal phalanx and diffuse pain over the joint. Her x-rays showed persistent joint space and a broken plate. We discussed that she likely was going on to a nonunion. We discussed different treatment options including nonsurgical treatment and observation versus surgery. The majority of her symptoms were coming from the plate which was prominent and she requested removing the plate. We discussed treatment options on how to deal with the nonunion if the joint was in fact not healed. We discussed that historically standard of care is revision fusion with bone graft and hardware. The patient was very reluctant to have more hardware put in given her delayed wound healing and symptomatic hardware from her prior surgery. We discussed removing the hardware and leaving the joint versus implant arthroplasty with Cartiva. We discussed that using implant arthroplasty would be an off label use of the implant and there is no literature using it for this particular indication. We discussed that there is good evidence in the primary setting for arthritis of the first MTP joint that implant arthroplasty has comparable outcome to fusion. I discussed with the patient denied previous patient that 1 onto a nonunion following a fusion and did well with hardware removal and Cartiva. After hearing her options the patient and her elected to go forward with hardware removal, expiration of the joint, and possible implant arthroplasty. They're well aware of the potential risks and limitations of surgery. We discussed those risks at length in the office including but not limited to risks from anesthesia, superficial infection, deep infection, delayed wound healing, wound necrosis, implant subsidence, intraoperative fracture, postoperative fracture, persistent or wo rsened pain, dissatisfaction with surgery, need for further surgery including implant removal and fusion, DVT, PE, other medical complications, and possibly loss of life or limb. The patient and her again realize the limitations of using this implant for this indication for provided their consent to go forward with surgery. Operative Findings: Aseptic nonunion first MTP joint Description of Procedure: The patient was identified in preoperative holding and the correct left foot was marked with my initials. I reviewed the consent form with the patient and her . All their questions were answered. The patient was then brought back to the operating room to reduce position on the OR table where a general anesthetic and preoperative antibiotics were given. A tourniquet was applied to the proximal aspect the left leg. All bony prominences well-padded. Left leg was then prepped and draped in the standard sterile fashion. Prior to starting surgery timeout was performed identifying the correct patient, operative extremity, and procedure. The patient's leg was then elevated, exsanguinated with an Esmarch bandage, and the tourniquet was inflated to 250 mmHg. Next I began by making incisions to her previous scar over the dorsal aspect of the first MTP joint. Dissection was carried down carefully through the subcutaneous tissue. The plate was identified and circumferentially exposed. It was broken through the third hole of the plate. All screws were removed followed by the plate. The lag screw across the joint was then removed through a stab hole over the proximal base of the proximal phalanx. The joint and gone on to complete nonunion and there was no bridging bone. It was circumferentially exposed and access was gained to the first metatarsal head. A K wire was driven down the central aspect of the first metatarsal head. Due to the prior lag screw I elected to use an 8 mm Cartiva plug. The reamer was brought down just shy of full contact to allow the implant to sit proud. The wound was thoroughly irrigated. An 8 mm implant was then press-fit into the cavity. It had excellent fit. The joint was brought through range of motion and was found to be stable. The wound was again thoroughly irrigated. Final fluoroscopic images were taken. The capsule was closed with a running 3-0 Monocryl. The deep subcutaneous tissue was reapproximated using 3-0 Monocryl. The skin was closed using 3-0 nylon was onto mattress sutures. I verified that all instrument, sponge, and sharp counts were correct. The patient had a sterile dressing applied to her foot. The drapes were taken down and she was placed in her boot. She was brought to recovery entire procedure well.
[2019-06-02 09:52] VITALS: TEMP 98.6
[2019-06-02 09:55] VITALS: RESP 18
[2019-06-02] MEDS: fentaNYL (PF) 50 MCG/ML 2 ML AMP IV PRN ×2 (10:09→10:16)
[2019-06-02] MEDS ORDERED: HYDROcodone/APAP 7.5-325MG 1 EACH TAB PO ONE (10:57)
[2019-06-02 11:18] VITALS: BP 126/87; PULSE 83
== END 2019-06-02 12:01 | disposition home or self-care (01) ==
LOC: OR 06:04
PROVIDERS: ATTEND Orthopaedic Surgery
DX: M96.0 Pseudarthrosis after fusion or arthrodesis (principal); T84.84XA Pain due to internal orthopedic prosthetic devices, implants and grafts, initial encounter; E03.9 Hypothyroidism, unspecified; E78.5 Hyperlipidemia, unspecified; M19.90 Unspecified osteoarthritis, unspecified site; F32.9 Major depressive disorder, single episode, unspecified; M54.2 Cervicalgia; M54.9 Dorsalgia, unspecified; Z87.891 Personal history of nicotine dependence; Z96.692 Finger-joint replacement of left hand; Z97.3 Presence of spectacles and contact lenses; Z85.828 Personal history of other malignant neoplasm of skin; Z79.890 Hormone replacement therapy; Z79.891 Long term (current) use of opiate analgesic; Z79.899 Other long term (current) drug therapy; Z88.5 Allergy status to narcotic agent; Z88.8 Allergy status to other drugs, medicaments and biological substances
CPT/HCPCS: 73660; 28899; 20680; J2001 ×2; J2250; J1200; J1100; J2175; J0690; J2405; J3010; J0330; J2704

== ENCOUNTER → 2021-06-07 | Outpatient (CLI) | payer MEDICARE ==
--- NOTE | 2021-06-10 10:36 | MM ---
Reason for exam: screening (asymptomatic). Last mammogram was performed 2 years and 2 months ago. History: Patient is postmenopausal and has history of other cancer at age 57. Benign cyst aspiration of the right breast, June 11, 2001. Reduction of the left breast. Reduction of the right breast. Cyst aspiration of the right breast. Taking estrogen for 1 month. Taking progesterone for 1 month. Physical Findings: A clinical breast exam by your physician is recommended on an annual basis and results should be correlated with mammographic findings. MG 3D Screening Mammo W/Cad Bilateral CC and MLO view(s) were taken. Prior study comparison: April 11, 2019, bilateral MG 3d screening mammo w/cad. February 26, 2017, bilateral MG 3d screening mammo w/cad. The breast tissue is heterogeneously dense. This may lower the sensitivity of mammography. There is chronic nodularity in the right breast. No significant changes when compared with prior studies. ASSESSMENT: Benign, BI-RAD 2 RECOMMENDATION: Routine screening mammogram of both breasts in 1 year.
== END | disposition home or self-care (01) ==
LOC: RADMAMWWP 15:49
PROVIDERS: ATTEND Obstetrics & Gynecology
DX: Z12.31 Encounter for screening mammogram for malignant neoplasm of breast (principal)
CPT/HCPCS: 77063; 77067

== ENCOUNTER → 2021-09-17 | Outpatient (CLI) | payer MEDICARE ==
[2021-09-17 17:04] LABS: Basophils % (A) 1 %; Eosinophils # (A) 0.1 k/uL (0-0.7); Eosinophils % (A) 2 %; HCT 35.8 % (34.0-46.0); HGB 11.8 gm/dL (11.4-16.0); Lymphocytes # (A) 1.5 k/uL (1.0-4.8); Lymphocytes % (A) 34 %; MCH 30.2 pg (25.0-35.0); MCHC 32.8 g/dL (31.0-37.0); Monocytes # (A) 0.3 k/uL (0-1.0); Monocytes % (A) 7 %; Neutrophils # (A) 2.4 k/uL (1.3-7.7); Neutrophils % (A) 54 %; Platelet Count 334 k/uL (150-450); RBC 3.89 m/uL (3.80-5.40); RDW 12.7 % (11.5-15.5); WBC 4.5 k/uL (3.8-10.6)
[2021-09-17 17:14] LABS: Crenated RBC Present
== END | disposition home or self-care (01) ==
LOC: LABWHC1 14:48
PROVIDERS: ATTEND Family Medicine
DX: D61.818 Other pancytopenia (principal)
CPT/HCPCS: 36415; 85025

== ENCOUNTER → 2022-01-07 | Outpatient (CLI) | payer MEDICARE ==
[2022-01-07 18:32] LABS: HCT 36.4 % (37.2-46.3); HGB 11.8 g/dL (12.0-15.0); MCH 28.9 pg (27.0-32.0); MCHC 32.4 g/dL (32.0-37.0); Mean Platelet Volume 10.2 fL (9.5-12.2); NRBC Per 100 WBC 0 /100 WBCS (0.0-0.0); Platelet Count 370 X 10*3/uL (140-440); RBC 4.09 X 10*6/uL (4.10-5.20); RDW 12.2 % (11.5-14.5); WBC 3.61 X 10*3/uL (4.50-10.00)
[2022-01-07 18:38] LABS: ALT 12 U/L (8-44); AST 15 U/L (13-35); African American GFR (CKD) 88.4 (60.0-200.0); Albumin 4.7 g/dL (3.8-4.9); Albumin/Globulin Ratio 2.24 (1.60-3.17); Alkaline Phosphatase 86 U/L (41-126); BUN/Creat Ratio 10.63 Ratio (12.00-20.00); Blood Urea Nitrogen 8.5 mg/dL (9.0-27.0); Calcium 9.6 mg/dL (8.7-10.3); Carbon Dioxide 24.6 mmol/L (20.0-27.5); Chloride 97 mmol/L (96-109); Chol/HDL Ratio 3.57 Ratio; Creatine Kinase 120 U/L (26-186); Globulin 2.1 g/dL (1.6-3.3); Glucose 103 mg/dL (70-110); LDL Cholesterol,Calculated 140.7 mg/dL (0.0-131.0); Magnesium 2.3 mg/dL (1.5-2.4); Non-African American GFR(CKD) 76.3 (60.0-200.0); Potassium 5.6 mmol/L (3.5-5.5); Sodium 132 mmol/L (135-145); Total Bilirubin <0.15 mg/dL (0.30-1.20); Total Protein 6.8 g/dL (6.2-8.2); Uric Acid 2.5 mg/dL (2.9-7.7)
== END | disposition home or self-care (01) ==
LOC: LABWHC1 11:57
PROVIDERS: ATTEND Family Medicine
DX: G43.909 Migraine, unspecified, not intractable, without status migrainosus (principal); E66.9 Obesity, unspecified; R79.89 Other specified abnormal findings of blood chemistry; E78.5 Hyperlipidemia, unspecified; I10 Essential (primary) hypertension
CPT/HCPCS: 36415; 80053; 80061; 82550; 83735; 84443; 84481; 84550; 85027

== ENCOUNTER → 2023-11-04 | Outpatient (CLI) | payer MEDICARE ==
--- NOTE | 2023-11-05 14:20 | MM ---
Reason for Exam: Screening (asymptomatic). Last mammogram was performed 1 year(s) and 2 month(s) ago. Patient History: Menarche at age 11. First Full-Term at age 21. Postmenopausal. Patient has history of breast feeding. Other cancer, age 57. Currently using Estrogen, starting at age 54. Currently using Progesterone, starting at age 54. Cyst Aspiration on the Right side. Reduction on the Right side. Reduction on the Left side. 06/11/2001, Benign Cyst Aspiration on the right side. Risk Values: Renée 5 year model risk: 1.5%. NCI Lifetime model risk: 4.8%. Prior Study Comparison: 08/28/2015 Bilateral Screening Mammogram, [facility]. 02/26/2017 Bilateral Screening Mammogram, [facility]. 04/11/2019 Bilateral Screening Mammogram, [facility]. 06/07/2021 Bilateral Screening Mammogram, [facility]. 09/29/2022 Bilateral MG 3D screening mammo w/cad, [facility]. Tissue Density: There are scattered areas of fibroglandular density. Findings: Analyzed By CAD. Right breast: There is no suspicious group of microcalcifications or new suspicious mass. Benign-appearing calcifications right breast. Left breast: There is no suspicious group of microcalcifications or new suspicious mass. Benign-appearing calcifications left breast. Overall Assessment: Benign, BI-RAD 2 Management: Screening Mammogram of both breasts in [address] [facility] will attempt to contact patient to return for supplemental views and ultrasound if indicated. Patient should continue monthly self-breast exams. A clinical breast exam by your physician is recommended on an annual basis. This exam should not preclude additional follow-up of suspicious palpable abnormalities. Note on Renée scores and lifetime risk: 1. A Renée score greater than 3% is considered moderate risk. If this is the case, consider specialist referral to assess eligibility for a risk reducing agent. 2. If overall lifetime risk for the development of breast cancer is 20% or higher, the patient may qualify for future screening with alternating mammogram and breast MRI. Electronically signed and approved by: Matthew Thao DO
== END | disposition home or self-care (01) ==
LOC: RADMAMWWP 10:40
PROVIDERS: ATTEND Family Medicine
DX: Z12.31 Encounter for screening mammogram for malignant neoplasm of breast (principal); Z78.0 Asymptomatic menopausal state
CPT/HCPCS: 77063; 77067